=== PATIENT | male | born 1980 | race Caucasian/White ===

== ENCOUNTER 2016-04-19 12:44 | Emergency (ER) | payer MEDICAID ==
[~2016-04-19] VITALS: Ht 157.5 cm; Wt 63.5 kg
[2016-04-19 13:31] VITALS: BP 112/71
[2016-04-19] MEDS ORDERED: ONDANSETRON HCL 4 MG/2 ML VIAL IM ONE (14:45)
[2016-04-19] MEDS ORDERED: HYDROmorphone HCL 2 MG/ML VL IM ONE (14:45)
== END 2016-04-19 15:11 | disposition home or self-care (01) ==
LOC: ER 12:44
DX: M10.9 Gout, unspecified (principal); F17.210 Nicotine dependence, cigarettes, uncomplicated; Z88.0 Allergy status to penicillin
CPT/HCPCS: 96372; 99284; J1170; J2405